=== PATIENT | male | born 1940 | race Caucasian/White ===

== ENCOUNTER → 2024-03-17 | Outpatient (CLI) | payer MEDICARE, SELFPAY ==
[2024-03-17 11:54] LABS: PSA,Total- Diagnostic < 0.01 ng/mL (0.0-4.0)
== END | disposition home or self-care (01) ==
PROVIDERS: PCP Family Medicine
DX: C61 Malignant neoplasm of prostate (principal)
CPT/HCPCS: 36415; 84153